=== PATIENT | male | born 1975 | race Caucasian/White ===

== ENCOUNTER 2017-12-05 17:30 | Emergency (ER) | payer SELFPAY ==
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
== END 2017-12-05 19:00 | disposition home or self-care (01) ==
LOC: ER 17:30
DX: S09.90XA Unspecified injury of head, initial encounter (principal); R51 Headache; R42 Dizziness and giddiness; W01.0XXA Fall on same level from slipping, tripping and stumbling without subsequent striking against object, initial encounter; F17.210 Nicotine dependence, cigarettes, uncomplicated
CPT/HCPCS: 70450; 99283